=== PATIENT | male | born 2000 | race Caucasian/White ===

== ENCOUNTER 2019-07-06 03:25 | Emergency (ER) | payer MEDICAID, OTHER ==
[~2019-07-06] VITALS: Ht 172.7 cm; Wt 86.2 kg
[2019-07-06 04:09] VITALS: BP_SYST 152
--- NOTE | 2019-07-06 04:09 | NUR ---
Pt ambulatory to bed 8 for evaluation
--- NOTE | 2019-07-06 04:20 | NUR ---
ER at bedside examining patient.
--- NOTE | 2019-07-06 04:30 | NUR ---
Pt came to the ED for rash for the last several weeks. Reports rash is very itchy. Pt has been using Caladryl lotion with some relief. Reports he started the symptoms while he was in jail. Denies n/v/d or fever. No other complaints/injuries noted. Will cont. to monitor.
[2019-07-06 05:06] VITALS: BP_SYST 152
--- NOTE | 2019-07-06 05:06 | NUR ---
Patient given written and verbal discharge instructions and verbalizes understanding. ER MD Dr. Liu discussed with patient the results and treatment provided. Patient in stable condition. ID arm band removed. Rx of diflucan, predisone and lotrimin given. Patient educated on pain management and to follow up with PMD. Pain Scale 0/10. Opportunity for questions provided and answered. Medication side effect fact sheet provided.
== END 2019-07-06 05:06 | disposition home or self-care (01) ==
LOC: SED 03:25
DX: B35.4 Tinea corporis (principal)
CPT/HCPCS: 99283

== ENCOUNTER 2019-11-06 16:30 | Emergency (ER) | payer MEDICAID ==
[~2019-11-06] VITALS: Ht 172.7 cm; Wt 86.2 kg
[2019-11-06 16:33] VITALS: BP_SYST 137
[2019-11-06 16:55] VITALS: BP_SYST 138
== END 2019-11-06 16:55 | disposition home or self-care (01) ==
LOC: SED 16:30
DX: K13.0 Diseases of lips (principal); J45.909 Unspecified asthma, uncomplicated
CPT/HCPCS: 99283

== ENCOUNTER 2019-12-15 11:01 | Emergency (ER) | payer MEDICAID ==
[~2019-12-15] VITALS: Ht 170.2 cm; Wt 61.2 kg
[2019-12-15 11:14] VITALS: BP_SYST 121
[2019-12-15 12:16] VITALS: BP_SYST 121
[2019-12-15] MEDS ORDERED: BACITRACIN 1 GM OINT TP ONE (12:24)
== END 2019-12-15 12:16 | disposition home or self-care (01) ==
LOC: SED 11:01
DX: S61.412A Laceration without foreign body of left hand, initial encounter (principal); J45.909 Unspecified asthma, uncomplicated; W26.0XXA Contact with knife, initial encounter; Y93.89 Activity, other specified; Y92.89 Other specified places as the place of occurrence of the external cause; Y99.8 Other external cause status
CPT/HCPCS: 99282

== ENCOUNTER 2019-12-17 20:23 | Emergency (ER) | payer MEDICAID ==
[~2019-12-17] VITALS: Ht 172.7 cm; Wt 77.1 kg
[2019-12-17 20:23] VITALS: BP_SYST 130
--- NOTE | 2019-12-17 20:40 | NUR ---
Placed in room 8 . Placed on traffic monitor specialist, blood pressure machine and pulse oximeter.
--- NOTE | 2019-12-17 20:41 | NUR ---
ER at bedside examining patient.
--- NOTE | 2019-12-17 20:48 | NUR ---
19 y/o male presents to the ER for wound laceration located on L thenar eminance x 2 days ago. Pt came to the ER on 12/15/2019 for laceration, pt was sutured w/ 5-0 ethilon, approx laceration 2.5 cm. Pt reports sutures came off this morning. No active bleeding from site, slight reddness, no d/c. Denies fever, pain, SOB, CP, or any other complaints at this time.
[2019-12-17 21:22] VITALS: BP_SYST 130
--- NOTE | 2019-12-17 21:22 | NUR ---
Patient given written and verbal discharge instructions and verbalizes understanding. ER MD discussed with patient the results and treatment provided. Patient in stable condition. ID arm band removed. Rx of Keflex given. Opportunity for questions provided and answered. Medication side effect fact sheet provided.
== END 2019-12-17 21:22 | disposition home or self-care (01) ==
LOC: SED 20:23
DX: T81.30XA Disruption of wound, unspecified, initial encounter (principal); L03.114 Cellulitis of left upper limb; J45.909 Unspecified asthma, uncomplicated; Z86.19 Personal history of other infectious and parasitic diseases
CPT/HCPCS: 99283

== ENCOUNTER 2022-09-29 18:34 | Emergency (ER) | payer BC, MEDICAID ==
[~2022-09-29] VITALS: Ht 172.7 cm; Wt 86.2 kg
[2022-09-29 18:49] VITALS: BP_SYST 112
--- NOTE | 2022-09-29 19:02 | NUR ---
Pt C/O dysuria, polyuria X2 days. AOX4. VSS. Able to make needs known. Patient in ED with signicant order with similar S/S. Patient in waiting room pending MD evaluation.
--- NOTE | 2022-09-29 19:24 | NUR ---
ATTEMPTED TO ASSES PATIENT AT CHANGE OF SHIFT. PATIENT NOT FOUND IN WAITING ROOM.
--- NOTE | 2022-09-29 19:40 | NUR ---
CALLED PT TO ASSES. PT NOT FOUND IN WAITING ROOM.
--- NOTE | 2022-09-29 19:53 | NUR ---
called for patient in ER lobby and outside, no answer LWBS by doctor
--- NOTE | 2022-09-29 19:53 | NUR ---
Patient left without being seen.
== END 2022-09-29 19:53 | disposition left against medical advice (07) ==
LOC: SED 18:34
DX: R30.0 Dysuria (principal); R35.89 Other polyuria; Z53.21 Procedure and treatment not carried out due to patient leaving prior to being seen by health care provider
CPT/HCPCS: 99281